=== PATIENT | male | born 1955 | race Caucasian/White ===

== ENCOUNTER 2023-12-26 09:31 | Emergency (ER) | payer SELFPAY ==
--- NOTE | 2023-12-26 09:32 | ED.GENMED ---
History of Present Illness
General
Chief Complaint: Blood Pressure Problem
Time Seen by Provider: 12/26/23 09:32
History of Present Illness
History of Present Illness:
HPI: Patient was brought in by police at 9:30 AM. He was sent here from [facility] regarding medical clearance for high blood pressure. I spoke to the privacy officer at bedside who states that they would not accept him
without medical clearance due to concerns of high blood pressure and apparently he did have a shot of donna last night. Patient states he is compliant w/ Amlodipine 10mg and last took yesterday; is not sure when he last took and what dose is of
HCTZ. He tells me he had blood work recently for upcoming right hip surgery. He does feel somewhat nervous but denies any other symptoms.
EXAM:
GENERAL: Well appearing in no distress, currently in handcuffs, mildly hypertensive
HEENT: Moist oral mucosa
CARDIOVASCULAR: No murmurs, normal heart rate, regular rhythm, No chest wall tenderness
PULMONARY: No respiratory distress, breath sounds are clear and equal
ABDOMEN: Soft with no peritoneal signs, no tenderness
NEUROLOGIC: Excellent strength all extremities, no coordination deficits, subtle left upper extremity tremor which patient states is chronic
PSYCHIATRIC: Appropriate mental status, normal insight and judgement
EXTREMITIES: Nontender, no edema, decreased active range of motion at the right hip which is chronic
SKIN: No rash, no lesions
TIME OF INITIAL ENCOUNTER: 9:35 AM
NUMBER AND COMPLEXITY OF PROBLEMS ADDRESSED AT THE ENCOUNTER
� Chronic conditions affecting care: High blood pressure, chronic right hip pain
� Acute Exacerbation and/or Progression of Chronic Illness: This is an acute problem
� Differential Diagnosis includes: Patient is here for medical evaluation and clearance for incarceration
AMOUNT AND/OR COMPLEXITY OF DATA TO BE REVIEWED AND ANALYZED
� I performed an independent evaluation of and my interpretation is:
EKG:
CT:
X-rays:
Laboratory Studies: CBC is unremarkable, sodium and creatinine are normal
Other:
� Review of other/old records: No old records available for review in [facility]
� Clinical information was obtained by an independent historian: I spoke to privacy officer at bedside
� Prescriptions/Medications Considered but not given:
� Further testing considered but not performed:
RISK OF COMPLICATIONS AND/OR MORBIDITY OR MORTALITY OF PATIENT MANAGEMENT
� Social determinants of health affecting care: Currently in police custody
� Discussion with other providers: Police at bedside
� Escalation of care including admission/observation vs risk of discharge considered: The privacy officer requests us to medically clear the patient for incarceration. Since patient is on HCTZ and I have no recent records,
will obtain labs particularly to look for any signs of hyponatremia. I did order his usual doses of medication. He states he ran out of HCTZ a few months ago. The patient was given his usual BP meds. Reassessment at 10:20 AM�no changes and
patient essentially remains asymptomatic.
Phy Exam
Physical Exam
Physical Exam:
See HPI
Course
Orders/Labs/Results
Orders:
Orders
12/26/23 09:44
Amlodipine [Norvasc] 10 mg PO NOW STA
12/26/23 09:45
Hydrochlorothiazide [Oretic] 50 mg PO NOW STA
12/26/23 09:49
Basic Metabolic Panel Urgent
Complete Blood Count/With Diff Urgent
Abnormal Lab Results
12/26/23
09:49
RBC 4.66 L 10^6/uL
(4.70-6.10)
MCV 96.6 H fL
(80.0-94.0)
MCH 34.1 H pg
(27.0-31.0)
Absolute Lymphs (auto) 0.8 L 10^3/uL
(1.2-3.4)
Neutrophils % 81.9 H %
(42.2-75.2)
Lymphocytes % 10.6 L %
(20.5-51.1)
Chloride 111 H mmol/L
(98-107)
Carbon Dioxide 21 L mmol/L
(22-30)
BUN 26 H mg/dl
(9-20)
Creatinine 0.6 L mg/dL
(0.7-1.3)
Glucose 107 H mg/dl
(70-99)
12/26/23 09:49
12/26/23 09:49
Vital Signs
Initial and Last Documented VS:
Initial Vital Signs
Temp Pulse Resp BP Pulse Ox
97.1 F 94 14 147/89 98
12/26/23 09:33 12/26/23 09:33 12/26/23 09:33 12/26/23 09:33 12/26/23 09:33
Last Documented Vital Signs
Temp Pulse Resp BP Pulse Ox
97.1 F 94 14 147/89 98
12/26/23 09:33 12/26/23 09:33 12/26/23 09:33 12/26/23 09:33 12/26/23 09:33
*Critical Care Note
Total Time (30-74mins, 75-104mins- exclusive of procedures): Not Applicable
ED Attending Note
-
Portions of this chart may have been created with voice recognition software.� Occasional wrong word or��sound alike� substitutions may have occurred due to the inherent limitations of voice recognition software.
Discharge Plan
Departure
Patient Disposition: Home (Routine Discharge)
Date of Disposition: 12/26/23
Time of Disposition: 10:15
Patient with high blood pressure during this ER visit?: Yes
Discharge Problem:
High blood pressure
Instructions: High Blood Pressure (DC), BLOOD PRESSURE
Prescriptions:
New
amlodipine 10 mg tablet
10 mg PO DAILY Qty: 30 0RF
hydrochlorothiazide 25 mg tablet
25 mg PO DAILY Qty: 30 0RF
No Action
amlodipine 5 mg Tablet
10 mg PO DAILY
hydrochlorothiazide 25 mg Tablet
25 mg PO DAILY
Referrals:
UNKNOWN - PT NOT,INTERVIEWE [Family Provider] -
Activity Restrictions/Additional Instructions:
PATIENT IS MEDICALLY CLEAR FOR INCARCERATION / POLICE CUSTODY
Initial blood pressure readings here 147/89. Complete blood cell count is normal, sodium level was normal. Kidney function is normal. I recommend that you follow-up with primary care doctor. I did give you prescription for the medications that
you say you are already on.
Interventions
Interventions:
*Risk Screen - Suicide Last Done: 12/26/23 09:33
*General Assessment Last Done: 12/26/23 09:33
*Neglect/Abuse Screening Last Done: 12/26/23 09:33
ED- Fall Risk Assessment Last Done: 12/26/23 09:33
*ED COVID-19 Vaccine History Last Done: 12/26/23 09:33
ED- Cardiac Assessment Last Done: 12/26/23 09:33
ED- Neurological Assessment Last Done: 12/26/23 09:33
ED- Pulmonary Assessment Last Done: 12/26/23 09:33
[2023-12-26 09:33] VITALS: BP 147/89
[2023-12-26 09:54] LABS: % Basophils 0.5 % (0-2); % Eosinophils 0.5 % (0-6); % Immature Granulocytes 0.4 % (0-0.5); % Lymphocytes 10.6 % (20.5-51.1); % Monocytes 6.1 % (1.7-9.3); % Neutrophils 81.9 % (42.2-75.2); Absolute Lymphocytes 0.8 10^3/uL (1.2-3.4); Absolute Monocytes 0.5 10^3/uL (0.1-0.6); Absolute Neutrophils 6.3 10^3/uL (1.4-6.5); Hemoglobin 15.9 g/dL (13.0-18.0); Mean Corp Hgb Conc. 35.3 g/dL (33.0-37.0); Mean Corpuscular Hgb 34.1 pg (27.0-31.0); Mean Corpuscular Volume 96.6 fL (80.0-94.0); Mean Platelet Volume 9.6 fL (7.4-10.4); Nucleated Red Blood Cells % 0 % (-); Platelet Count 310 10^3/uL (130-400); Red Blood Cell Count 4.66 10^6/uL (4.70-6.10); Red Cell Dist. Width 13.9 % (11.5-14.5); White Blood Cell Count 7.7 10^3/uL (4.8-10.8)
[2023-12-26 09:57] VITALS: BMI 26.7
[2023-12-26] MEDS: NORVASC 10 MG PO (10:08)
[2023-12-26] MEDS: ORETIC 50 MG PO (10:08)
[2023-12-26 10:12] LABS: Blood Urea Nitrogen 26 mg/dl (9-20); Calcium 8.9 mg/dl (8.4-10.2); Carbon Dioxide 21 mmol/L (22-30); Chloride 111 mmol/L (98-107); Estimated Creatinine Clearance 113 ml/min; Glucose 107 mg/dl (70-99); Potassium 4.3 mmol/L (3.5-5.1); Sodium 140 mmol/L (135-145); eGFR > 60.00
[2023-12-26 10:46] VITALS: BP 133/80
== END 2023-12-26 10:48 | disposition home or self-care (01) ==
LOC: EMR 09:31
PROVIDERS: EMERGENCY PHYSICIAN Emergency Medicine
DX: Z02.79 Encounter for issue of other medical certificate (principal); Z65.3 Problems related to other legal circumstances; I10 Essential (primary) hypertension
CPT/HCPCS: 99283; 80048; 85025